=== PATIENT | female | born 1955 | race Hispanic/Latino ===

== ENCOUNTER 2016-05-02 10:17 | Emergency (ER) | payer SELFPAY ==
[2016-05-02 10:51] LABS: BASOPHILS 0.5 % (0.0-2.0); EOSINOPHILS 0.9 % (0.0-6.0); EOSINOPHILS# 0.1 X 10^3uL (0.0-0.4); HEMATOCRIT 40.4 % (36.0-48.0); HEMOGLOBIN 13.1 g/dL (12.0-16.0); LYMPHOCYTES 13.7 % (20.0-40.0); LYMPHOCYTES# 1.1 X 10^3uL (0.8-3.8); MEAN CELL VOLUME 81.8 fL (80.0-100.0); MEAN CORPUS. HGB CONCENTRATION 32.5 g/dL (32.0-36.0); MEAN CORPUSCULAR HEMOGLOBIN 26.6 pg (29.0-35.0); MEAN PLATELET VOLUME 11.3 fL (7.4-10.4); MONOCYTES 4.1 % (2.0-10.0); MONOCYTES# 0.3 X 10^3uL (0.2-1.0); NEUTROPHILS 80.8 % (54.0-75.0); NEUTROPHILS# 6.3 X 10^3uL (2.6-6.7); PLATELET COUNT 164 X 10^3uL (130-440); RED BLOOD COUNT 4.94 X 10^6uL (4.20-6.10); RED CELL DISTRIBUTION WIDTH 14.1 % (11.5-14.5); WHITE BLOOD COUNT 7.8 X 10^3uL (3.9-10.7)
[2016-05-02 11:01] LABS: ALBUMIN 3.7 g/dL (3.5-5.0); ALKALINE PHOSPHATASE 59 U/L (38-126); ALT 50 U/L (9-52); AST 30 U/L (14-36); BILIRUBIN, DIRECT 0.3 mg/dL (0.0-0.4); BILIRUBIN, TOTAL 1.2 mg/dL (0.2-1.3); BLOOD UREA NITROGEN 21 mg/dL (7-17); CALCIUM 8.7 mg/dL (8.4-10.2); CHLORIDE 108 mmol/L (98-107); CREATININE 1.1 mg/dL (0.5-1.0); EST GLOMERULAR FILTRATION RATE 54 mL/min; GLUCOSE 137 mg/dL (70-100); LIPASE 93 U/L (23-300); POTASSIUM 4.3 mmol/L (3.5-5.1); SODIUM 140 mmol/L (137-145); TOTAL PROTEIN 6.8 g/dL (6.3-8.2)
[2016-05-02 11:13] LABS: TROPONIN I < 0.012 ng/mL (0.00-0.034)
--- NOTE | 2016-05-02 12:39 | ER NURSING DOCUMENTATION ---
Nurse's Notes [facility] Name:Abiola Monzon Age:61 yrs Sex:Female :1955 Arrival Date:05/02/2016 Time:10:17 Bed4 Private MD: Diagnosis:CHF (Congestive Heart Failure);Premature Ventricular Contractions (PVC) Presentation: 05/02 10:18 Presenting complaint: Patient states: pt states with the help of her Kazakh speaking st daughter that she has had N/V and SOB for 3 weeks. pt has not seen a DrRosalina for this. pt has been told that she needs a pacemaker but has been waiting for citizenship paperwork. pt also has a hx of abd cancer a few years ago. Transition of care: Home. 10:18 Method Of Arrival: Private Vehicle st 10:19 Acuity: JENS 2 st 10:30 Notified ED Physician of Dr. Soriano notified. st Triage Assessment: 10:18 General: Appears ill, Behavior is cooperative. Pain: Denies pain. Neuro: No deficits st noted. Cardiovascular: Capillary refill < 3 seconds Heart tones present Reports fatigue, Nausea shortness of breath Vomiting Rhythm is sinus tachycardia with unifocal PVCs and a bundle branch block. Cardiovascular: Edema is absent. Respiratory: Airway is patent Respiratory effort is even, labored, Respiratory pattern is regular, symmetrical, Breath sounds are clear bilaterally. Reports shortness of breath Onset: The symptoms/episode began/occurred over 3 weeks, the patient has moderate shortness of breath. GI: Abdomen is obese, Abd is soft and non tender X 4 quads. Reports bloating, nausea, vomiting. Derm: Skin is pale. Historical: - Allergies: No known drug Allergies; - Home Meds: 1. furosemide Oral 2. pt takes other medications but can not rember the anguillan names for them - PMHx: Hypertension; [place]; needs a pacmaker; CANCER; - PSHx: cardiac stent; - Tetanus: < 10 years. - Social history: Smoking status: Patient states was never smoker of tobacco. Patient/guardian denies using alcohol, marijuana. Screenin:09 Abuse screen: Denies threats or abuse. Denies injuries from another. Nutritional st screening: No deficits noted. Assessment: 11:00 General: pt states that only 20% of her heart works. . st 11:13 General: pt color is improving and she states she is feeling a little better.. st Vital Signs: 10:18 BP 144 / 102; Pulse 103; Resp 24; Temp 98.3; Pulse Ox 93% on R/A; Pain 0/10; st 10:41 BP 139 / 94; Pulse 95; Pulse Ox 91% on R/A; st 10:50 BP 125 / 99; Pulse 95; Resp 22; Pulse Ox 92% ; st 11:00 BP 143 / 96; Pulse 94; Resp 24; Pulse Ox 91% on R/A; st 11:10 BP 127 / 84; Pulse 97; Resp 25; Pulse Ox 93% ; st 11:20 BP 141 / 102; Pulse 100; Resp 30; Pulse Ox 93% ; st 11:30 BP 156 / 106; Pulse 108; Resp 30; Pulse Ox 93% ; st 11:40 BP 137 / 99; Pulse 98; Resp 23; Pulse Ox 93% ; st 11:50 BP 137 / 100; Pulse 99; Resp 25; Pulse Ox 91% ; st 12:00 BP 143 / 99; Pulse 91; Resp 20; Pulse Ox 94% ; st 12:10 BP 141 / 102; Pulse 92; Resp 24; Pulse Ox 93% on R/A; st ED Course: 10:18 Patient arrived in ED. ama 10:18 Valuables Remains with patient Patient has correct armband on for positive st identification. Placed in gown. Bed in low position. Call light in reach. Side rails up X 1. student services counselor on. Pulse ox on. NIBP on. Warm blanket given. 10:19 Bev Arreola RN is Primary Nurse. st 10:[address] 10:24 EKG done per protocol. Performed by ED Staff. Shown to ED physician. st 10:42 Ra Soriano MD is Attending Physician. sc 10:42 Inserted peripheral IV: 20 gauge in left antecubital area and blood collected. st 11:44 Port Xray Completed. pm1 11:[address] 12:11 Kelvin Wilks MD is Referral Physician. sc 15:16 Primary Nurse role handed off by Bev Arreola RN st Administered Medications: No medications were administered Outcome: 12:13 Discharge ordered by . sc 12:29 Discharged to home via wheelchair. st 12:29 Condition: unchanged 12:29 Discharge Assessment: pt was doing better laying in be but when she started to get dress her SOB returned as did the ill appearance and the paleness. Pt still wanted to go home. 12:29 Discharge instructions given to patient, family, Instructed on discharge instructions, follow up and referral plans. medication usage, pt is to take an exster 20 mg of furosemide for the next three days. It was emphasis to pt and her family that she needs to fallow up with cardiology EDILBERTO. Pt was offered a transport to cardiology today and a hospital stay to expedite things. Pt refused given that she has to make an immigration meeting on Wednesday. We also had the discussion that lower altitudes might be easier but that the bottom line is that her heart is not doing well and she needs to address that EDILBERTO. 12:29 IV D/Hector 12:38 Patient left the ED. st 15:17 Patient [address] the ED. st 05/03 09:28 Discharge F/U Call: Unable to reach: no answer nf Signatures: Bev Arreola RN RN st Friel, Nicole, RN RN nf Chew, Scott, MD MD sc McBride, Philisha pm1 Peterson Brandon, Reg Reg ama
--- NOTE | 2016-05-02 12:39 | ER PHYSICIAN DOCUMENTATION ---
Physician Documentation [facility] Name:Abiola Monzon Age:61 yrs Sex:Female :1955 Arrival Date:05/02/2016 Time:10:17 Bed4 Private MD: Ra Mar Disposition: 05/02 12:11 Critical Care: not applicable. sc Disposition: 05/02/16 12:13 Discharged to Home/Self Care. Impression: CHF (Congestive Heart Failure), Premature Ventricular Contractions (PVC). - Condition is Serious. - Discharge Instructions: CHF, General, Palpitation - ARRHYTHMIA, Unspecified. - Medical Reconciliation form form. - Follow up: Kelvin Wilks MD; When: 1 - 2 days; Reason: Continuance of care. - Problem is an acute exacerbation. - Symptoms have improved. HPI: 12:14 This 61 yrs old Female presents to ER via Private Vehicle with complaints of sc Breathing Difficulty, Nausea/Vomiting. 12:14 The patient has shortness of breath with light activity. Onset: The symptom(s)/episode sc began/occurred last year, and became persistent 3 weeks ago. Duration: The symptoms are continuous, and are steadily getting worse. The patient's shortness of breath is aggravated by exertion. Associated signs and symptoms: Pertinent positives: nausea, vomiting, pedal edema and palpitations at times. The patient has experienced similar episodes in the past, chronically. has been advised she needs pacer, would also benefit from valve surgery but not a candidate, ef 20% per pt. Seeing cardiologists in [place] but can't go there until immigration paperwork complete in 3 weeks. Recently sob and occasional nausea and increased pedal edema. Refuses hospitalization at this time.. Historical: - Allergies: No known drug Allergies; - Home Meds: 1. furosemide Oral 2. pt takes other medications but can not rember the italian names for them - PMHx: Hypertension; [place]; needs a pacmaker; CANCER; - PSHx: cardiac stent; - Tetanus: < 10 years. - Social history: Smoking status: Patient states was never smoker of tobacco. Patient/guardian denies using alcohol, marijuana. ROS: 12:19 Constitutional: Negative for fever, chills, and weight loss. sc Eyes: Negative for injury, pain, redness, and discharge. ENT: Negative for injury, pain, and discharge. Neck: Negative for injury, pain, and swelling. Abdomen/GI: Negative for abdominal pain, nausea, vomiting, diarrhea, and constipation. Back: Negative for injury and pain. MS/Extremity: Negative for injury and deformity. Skin: Negative for injury, rash, and discoloration. 12:19 Neuro: Negative for headache, weakness, numbness, tingling, and seizure. sc 12:19 Cardiovascular: Positive for edema, palpitations, Negative for chest pain. 12:19 Respiratory: Positive for dyspnea on exertion, orthopnea, shortness of breath, Negative for cough, hemoptysis, sputum production, wheezing. Exam: Constitutional: This is a well developed, well nourished patient who is awake, alert, and in no acute distress. Head/Face: Normocephalic, atraumatic. Eyes: Pupils equal round and reactive to light, extra-ocular motions intact. Lids and lashes normal. Conjunctiva and sclera are non-icteric and not injected. Cornea within normal limits. Periorbital areas with no swelling, redness, or edema. ENT: Nares patent. No nasal discharge, no septal abnormalities noted. Tympanic membranes are normal and external auditory canals are clear. Oropharynx with no redness, swelling, or masses, exudates, or evidence of obstruction, uvula midline. Mucous membranes moist. Neck: Trachea midline, no thyromegaly or masses palpated, and no cervical lymphadenopathy. Supple, full range of motion without nuchal rigidity, or vertebral point tenderness. No meningismus. Chest/axilla: Normal chest wall appearance and motion. Nontender with no deformity. No lesions are appreciated. Abdomen/GI: Soft, non-tender, with normal bowel sounds. No distension or tympany. No guarding or rebound. No evidence of tenderness throughout. Back: No spinal tenderness. No costovertebral tenderness. Full range of motion. 12:19 Skin: Warm, dry with normal turgor. Normal color with no rashes, no lesions, and no sc evidence of cellulitis. 12:19 Cardiovascular: Rate: normal, Rhythm: irregular, Pulses: Pulses are 2+ in right radial artery, right posterior tibial artery, left radial artery and left posterior tibial artery. Heart sounds: murmur, heard in the aortic area, heard in the mitral area, S1, S2, Edema: ankle edema, that is moderate, JVD: is not appreciated. 12:19 Respiratory: the patient does not display signs of respiratory distress, Respirations: normal, Breath sounds: are normal, clear throughout. Vital Signs: 10:18 BP 144 / 102; Pulse 103; Resp 24; Temp 98.3; Pulse Ox 93% on R/A; Pain 0/10; st 10:41 BP 139 / 94; Pulse 95; Pulse Ox 91% on R/A; st 10:50 BP 125 / 99; Pulse 95; Resp 22; Pulse Ox 92% ; st 11:00 BP 143 / 96; Pulse 94; Resp 24; Pulse Ox 91% on R/A; st 11:10 BP 127 / 84; Pulse 97; Resp 25; Pulse Ox 93% ; st 11:20 BP 141 / 102; Pulse 100; Resp 30; Pulse Ox 93% ; st 11:30 BP 156 / 106; Pulse 108; Resp 30; Pulse Ox 93% ; st 11:40 BP 137 / 99; Pulse 98; Resp 23; Pulse Ox 93% ; st 11:50 BP 137 / 100; Pulse 99; Resp 25; Pulse Ox 91% ; st 12:00 BP 143 / 99; Pulse 91; Resp 20; Pulse Ox 94% ; st 12:10 BP 141 / 102; Pulse 92; Resp 24; Pulse Ox 93% on R/A; st MDM: 10:43 Patient medically screened. sc 11:[address] 12:21 Differential diagnosis: CHF exacerbation, Myocardial Infarction pulmonary edema, sc Unstable Angina. Antibiotic administration: Not indicated. Data reviewed: vital signs, nurses notes, lab test result(s), EKG, radiologic studies, and as a result, I will continue to observe the patient. Data interpreted: Pulse oximetry: on room air is 93 %. Counseling: I had a detailed discussion with the patient and/or guardian regarding: the historical points, exam findings, and any diagnostic results supporting the discharge/admit diagnosis, lab results, radiology results, the need for outpatient follow up, for a referral to a specialist, the need to transfer to another facility, [facility] not immediately have the required specialist. ECG:. Refusal of service: The patient/guardian displays adequate decision making capability and despite a detailed discussion of alternatives, benefits, risks, and consequences refuses: Admission to the hospital for further work-up and treatment. Special discussion: Based on the history and exam findings, there is no indication for further emergent testing or inpatient evaluation. I discussed with the patient/guardian the need to see the applied behavior science specialist for further evaluation of the symptoms. 05/02 10:58 Order name: CBC AUTO DIF, MDIF/RMOR IF IND; Complete Time: 12:09 [facility] 05/02 11:13 Interpretation: Normal. mi 05/02 11:02 Order name: BASIC METABOLIC PANEL; Complete Time: 12:09 [facility] 05/02 11:13 Interpretation: Normal Except: BLOOD UREA NITROGEN 21; CREATININE 1.1. mi 05/02 11:02 Order name: HEPATIC PANEL; Complete Time: 12:09 [facility] 05/02 11:13 Interpretation: Normal. mi 05/02 11:02 Order name: LIPASE; Complete Time: 12:09 [facility] 05/02 11:13 Interpretation: Normal. mi 05/02 11:13 Order name: BNP,NT-PRO; Complete Time: 12:09 [facility] 05/02 11:13 Order name: TROPONIN I; Complete Time: 12:09 [facility] 05/02 10:42 Order name: EKG - 12 Lead; Complete Time: 10:48 st 05/02 10:42 Order name: Continuous Cardiac Monitoring; Complete Time: 10:48 st 05/02 10:42 Order name: Pulse Ox Continuous; Complete Time: 10:48 st EC:21 Rate is 88 beats/min. Rhythm is irregular, Sinus tachycardia with Multifocal PVCs, sc Right bundle branch block. GA interval is prolonged. QRS interval is prolonged. QT interval is prolonged. No Q waves. Clinical impression: Abnormal EKG without significant change. Interpreted by me. Reviewed by me. Dispensed Medications: No medications were administered Signatures: Bev Arreola, RN Ra Tovar MD MD mi
--- NOTE | 2016-05-05 14:53 | RADIOLOGY REPORT ---
A limited single portable view of the chest, without prior films for comparison , demonstrates the cardiac silhouette to be enlarged. The pulmonary vasculature is unremarkable. The lung coats are clear. No infiltrate, fluid or pneumothorax is seen. IMPRESSION: Enlargement of the cardiac silhouette. MTDD
== END 2016-05-02 15:18 | disposition home or self-care (01) ==
LOC: ER 10:17
DX: I50.20 Unspecified systolic (congestive) heart failure (principal); I49.3 Ventricular premature depolarization; R06.02 Shortness of breath; R06.00 Dyspnea, unspecified; R60.0 Localized edema; I45.10 Unspecified right bundle-branch block; R11.2 Nausea with vomiting, unspecified; Z95.5 Presence of coronary angioplasty implant and graft; I10 Essential (primary) hypertension; Z79.899 Other long term (current) drug therapy; Z85.89 Personal history of malignant neoplasm of other organs and systems
CPT/HCPCS: 71010; 80048; 80076; 83690; 83880; 84484; 85025; 93005; 99284